=== PATIENT | female | born 1950 | race American Indian/Alaskan Native ===

== ENCOUNTER 2016-09-07 10:28 | Inpatient (IN) | payer OTHER ==
[2016-09-07 11:30] LABS: Anion Gap 20 mmol/L; BUN/Creatinine Ratio 18.75; Blood Urea Nitrogen 15 mg/dL (7-17); Calcium 8.6 mg/dL (8.4-10.2); Carbon Dioxide 23 mmol/L (22-30); Chloride 103.7 mmol/L (98-107); Glucose 142 mg/dL (65-100); Potassium 3.6 mmol/L (3.6-5.0); Sodium 143 mmol/L (137-145)
[2016-09-07 11:38] LABS: Basophils % (Auto) 0.8 % (0.0-1.8); Eosinophils % (Auto) 1.1 % (0.0-4.3); Hematocrit 21.7 % (30.3-42.9); Mean Corpuscular HGB Conc 32 % (30-34); Mean Corpuscular Hemoglobin 31 pg (28-32); Mean Corpuscular Volume 95 fl (79-97); Platelet Count 344 K/mm3 (140-440); Red Cell Distribution Width 15.8 % (13.2-15.2); White Blood Count 6.7 K/mm3 (4.5-11.0)
--- NOTE | 2016-09-07 15:13 | Emergency Department Report ---
ED GI Bleed [facility] - General Chief complaint: Arrhythmia/Palpitations Stated complaint: HEART RACING/TACHYCARDIA Time Seen by Provider: 09/07/16 14:53 Source: patient Mode of arrival: Wheelchair Limitations: No Limitations - History of Present Illness Initial comments: 65-year-old female with history of hypertension and hyperlipidemia presenting today because of palpitations and lightheadedness. Patient states this started over the last 1-2 days. She also has noticed bright red blood in her stool over the last 2 days however has had multiple episodes of diarrhea about 6 days ago and is unsure if there was any blood in there and she did not track. She does not take any blood thinners or aspirin. Takes occasional Tylenol but no other pain medication. Had a colonoscopy approximately 5 years ago which she states was normal and is not aware of any diverticulosis. She has no associated abdominal pain or nausea or vomiting. - Related Data Home Medications Medication Instructions Recorded Confirmed Last Taken No Known Home Medications [No 09/07/16 09/07/16 Unknown Reported Home Medications] Allergies Allergy/AdvReac Type Severity Reaction Status Date / Time No Known Allergies Allergy Unverified 09/07/16 10:47 ED Review of Systems ROS: Stated complaint: HEART RACING/TACHYCARDIA Other details as noted in HPI ED Past Medical Hx - Past Medical History Hx Hypertension: Yes Additional medical history: THYROID. HIGH CHOLESTEROL - Surgical History Additional Surgical History: PARTIAL THYROIDECTOMY (BENIGN MASS REMOVED ). RIGHT HIP. PARTIAL HYSTERECTOMY - Social History Smoking Status: Never Smoker Substance Use Type: None - Medications Home Medications: Home Medications Medication Instructions Recorded Confirmed Last Taken Type No Known Home Medications [No 09/07/16 09/07/16 Unknown History Reported Home Medications] ED Physical Exam - General Limitations: No Limitations General appearance: alert - Head Head exam: Present: atraumatic - Eye Eye exam: Present: other (pale conjunctiva) - ENT ENT exam: Present: normal exam - Respiratory Respiratory exam: Present: normal lung sounds bilaterally, respiratory distress - Cardiovascular Cardiovascular Exam: Present: normal heart sounds, other (tachycardic regular rhythm) - GI/Abdominal GI/Abdominal exam: Present: soft. Absent: distended, tenderness - Rectal Rectal exam: Present: other (maroon stool, guiac positive, no masses or tenderness) - Neurological Exam Neurological exam: Present: alert, oriented X3 - Psychiatric Psychiatric exam: Present: normal affect - Skin Skin exam: Present: intact ED Course Vital Signs 09/07/16 09/07/16 10:34 10:40 Temperature 98.7 F 98.7 F Pulse Rate 115 H 115 H Respiratory 18 16 Rate Blood Pressure 119/74 Blood Pressure 119/74 [Right] O2 Sat by Pulse 100 100 Oximetry - Reevaluation(s) Reevaluation #1: 09/07/16 16:54 Explained results to patient, patient has not had any bloody bowel movements while in ER ED Medical Decision Making - Lab Data Result diagrams: 09/07/16 11:01 09/07/16 11:01 - Medical Decision Making IV, labs, IV fluids, monitor, EKG, type and screen and coags, stool guaiac EKG shows sinus tachycardia at [address]-T changes painless GI bleed, presumed lower GI 1 unit PRBC ordered as hgb at 7 with gi bleed and patient is symptomatic Critical care attestation.: If time is entered above; I have spent that time in minutes in the direct care of this critically ill patient, excluding procedure time. ED Disposition Clinical Impression: GI bleed Disposition: OP ADMITTED IP TO THIS HOSP Is pt being admited?: Yes Condition: Serious Referrals: DEBORAH BUNDY MD [Primary Care Provider] - 3-5 Days Time of Disposition: 16:56 (Spoke to Dr. Richter)
[2016-09-07] MEDS ORDERED: NACL 0.9% 1000 ML 1,000 ML IV ONE (15:14)
[2016-09-07 16:30] LABS: Phosphorous 3.3 mg/dL (2.5-4.5)
[2016-09-07 16:33] LABS: Alanine Aminotransferase 14 units/L (7-56); Albumin 3.8 g/dL (3.9-5); Albumin/Globulin Ratio 1.4 %; Alkaline Phosphatase 44 units/L (35-129); Total Protein 6.6 g/dL (6.3-8.2)
[2016-09-07 16:37] LABS: INR 1.06 (0.87-1.13)
[2016-09-07] MEDS ORDERED: NACL 0.9% 500 ML 500 ML IV ONE (16:37)
[2016-09-07 16:49] LABS: Bilirubin,Direct < 0.2 mg/dL (0-0.2)
[2016-09-07] MEDS ORDERED: MILK OF MAGNESIA PO PRN (20:48)
[2016-09-07] MEDS ORDERED: DULCOLAX PR PRN (20:48)
[2016-09-07] MEDS ORDERED: DILAUDID IV PRN (20:48)
[2016-09-07] MEDS ORDERED: TYLENOL PO PRN (20:48)
[2016-09-07] MEDS ORDERED: ZOFRAN IV PRN (20:48)
[2016-09-07] MEDS: PROTONIX 80 MG in NACL 0.9% 100 ML IV SCH (23:06)
[2016-09-08] MEDS: D5NS 1,000 ML IV SCH ×2 (04:37→16:49)
[2016-09-08 06:08] LABS: Basophils % (Auto) 0.5 % (0.0-1.8); Eosinophils % (Auto) 1.5 % (0.0-4.3); Hemoglobin 7.3 gm/dl (10.1-14.3); Mean Corpuscular HGB Conc 33 % (30-34); Mean Corpuscular Hemoglobin 31 pg (28-32); Mean Corpuscular Volume 92 fl (79-97); Platelet Count 324 K/mm3 (140-440); Red Cell Distribution Width 15.2 % (13.2-15.2); White Blood Count 5.6 K/mm3 (4.5-11.0)
[2016-09-08 06:28] LABS: Alanine Aminotransferase 11 units/L (7-56); Albumin 3.4 g/dL (3.9-5); Albumin/Globulin Ratio 1.4 %; Alkaline Phosphatase 40 units/L (35-129); BUN/Creatinine Ratio 16.66; Blood Urea Nitrogen 10 mg/dL (7-17); Calcium 8.4 mg/dL (8.4-10.2); Carbon Dioxide 23 mmol/L (22-30); Glucose 97 mg/dL (65-100); Total Protein 5.9 g/dL (6.3-8.2)
[2016-09-08 06:29] LABS: Anion Gap 16 mmol/L; Chloride 107.7 mmol/L (98-107); Potassium 3.4 mmol/L (3.6-5.0); Sodium 143 mmol/L (137-145)
[2016-09-08] MEDS: PROTONIX 80 MG in NACL 0.9% 100 ML IV SCH ×2 (07:00→17:15)
--- NOTE | 2016-09-08 10:35 | Progress Note ---
Assessment and Plan Assessment and plan: GI bleed. Patient with previous colonoscopy approximately 5 years ago that was reportedly normal. GI consultation. Patient will likely need endoscopy per GI. Continue Protonix drip. Follow H&H closely. Transfuse for hemoglobin less than 7.0. Acute blood loss anemia. Etiology secondary to above. Monitor H&H closely. Hypertension. Resume antihypertensives medications. Hyperlipidemia. Continue current medications. DVT prophylaxis. Mechanical/SCDs only given GI bleed. History Interval history: No new issues overnight. Patient reports no bleeding since arriving to the hospital. No chest pain or shortness of breath. Hospitalist Physical - Constitutional Vitals: Temp Pulse Resp BP Pulse Ox 99.0 F 68 20 106/67 98 09/08/16 08:11 09/08/16 08:11 09/08/16 08:11 09/08/16 08:11 09/08/16 09:17 General appearance: Present: no acute distress, well-nourished - EENT Eyes: Present: PERRL, EOM intact ENT: hearing intact, clear oral mucosa, dentition normal - Neck Neck: Present: supple, normal ROM - Respiratory Respiratory effort: normal Respiratory: bilateral: CTA - Cardiovascular Rhythm: regular Heart Sounds: Present: S1 & S2. Absent: gallop, rub - Extremities Extremities: no ischemia, No edema, Full ROM - Abdominal General gastrointestinal: soft, non-tender, non-distended, normal bowel sounds - Integumentary Integumentary: Present: clear, warm, dry - Neurologic Neurologic: CNII-XII intact, moves all extremities Results - Labs CBC & Chem 7: 09/08/16 05:44 09/08/16 05:44 Labs: Laboratory Last Values WBC 5.6 K/mm3 (4.5-11.0) 09/08/16 05:44 RBC 2.40 M/mm3 (3.65-5.03) L 09/08/16 05:44 Hgb 7.3 gm/dl (10.1-14.3) L 09/08/16 05:44 Hct 22.0 % (30.3-42.9) L 09/08/16 05:44 MCV 92 fl (79-97) D 09/08/16 05:44 MCH 31 pg (28-32) 09/08/16 05:44 MCHC 33 % (30-34) 09/08/16 05:44 RDW 15.2 % (13.2-15.2) 09/08/16 05:44 Plt Count 324 K/mm3 (140-440) 09/08/16 05:44 Lymph % (Auto) 22.9 % (13.4-35.0) 09/08/16 05:44 [place] % (Auto) 8.0 % (0.0-7.3) H 09/08/16 05:44 Eos % (Auto) 1.5 % (0.0-4.3) 09/08/16 05:44 Baso % (Auto) 0.5 % (0.0-1.8) 09/08/16 05:44 Lymph # 1.3 K/mm3 (1.2-5.4) 09/08/16 05:44 [place] # 0.4 K/mm3 (0.0-0.8) 09/08/16 05:44 Eos # 0.1 K/mm3 (0.0-0.4) 09/08/16 05:44 Baso # 0.0 K/mm3 (0.0-0.1) 09/08/16 05:44 Seg Neutrophils % 67.1 % (40.0-70.0) 09/08/16 05:44 Seg Neutrophils # 3.8 K/mm3 (1.8-7.7) 09/08/16 05:44 PT 13.7 Sec. (12.2-14.9) 09/07/16 15:51 INR 1.06 (0.87-1.13) 09/07/16 15:51 Sodium 143 mmol/L (137-145) 09/08/16 05:44 Potassium 3.4 mmol/L (3.6-5.0) L 09/08/16 05:44 Chloride 107.7 mmol/L (98-107) H 09/08/16 05:44 Carbon Dioxide 23 mmol/L (22-30) 09/08/16 05:44 Anion Gap 16 mmol/L 09/08/16 05:44 BUN 10 mg/dL (7-17) 09/08/16 05:44 Creatinine 0.6 mg/dL (0.7-1.2) L 09/08/16 05:44 Estimated GFR > 60 ml/min 09/08/16 05:44 BUN/Creatinine Ratio 16.66 % 09/08/16 05:44 Glucose 97 mg/dL (65-100) 09/08/16 05:44 Hemoglobin A1c 5.4 % (4-6) 09/08/16 05:44 Calcium 8.4 mg/dL (8.4-10.2) 09/08/16 05:44 Phosphorus 3.30 mg/dL (2.5-4.5) 09/07/16 15:51 Magnesium 2.00 mg/dL (1.7-2.3) 09/07/16 15:51 Total Bilirubin 0.30 mg/dL (0.1-1.2) 09/08/16 05:44 Direct Bilirubin < 0.2 mg/dL (0-0.2) 09/07/16 15:51 Indirect Bilirubin 0.0 mg/dL 09/07/16 15:51 AST 16 units/L (5-40) 09/08/16 05:44 ALT 11 units/L (7-56) 09/08/16 05:44 Alkaline Phosphatase 40 units/L (35-129) 09/08/16 05:44 Troponin T < 0.010 ng/mL (0.00-0.029) 09/07/16 11:01 Total Protein 5.9 g/dL (6.3-8.2) L 09/08/16 05:44 Albumin 3.4 g/dL (3.9-5) L 09/08/16 05:44 Albumin/Globulin Ratio 1.4 % 09/08/16 05:44 TSH 2.370 mlU/mL (0.270-4.200) 09/07/16 15:51 Blood Type A NEGATIVE 09/07/16 15:51 Antibody Screen TNR 09/07/16 15:51 MALACHI Antibody Screen Negative 09/07/16 15:51 Crossmatch See Detail 09/07/16 15:51
[2016-09-08 11:13] LABS: Hematocrit 22.6 % (30.3-42.9); Hemoglobin 7.5 gm/dl (10.1-14.3)
--- NOTE | 2016-09-08 12:08 | History and Physical Report ---
CHIEF COMPLAINT: Bright red blood per rectum for 2 days. HISTORY OF PRESENT ILLNESS: A 65-year-old female who comes in for bright red blood per rectum for the last 2 days. This is the first time this similar thing has happened. Never had any upper GI bleed or lower GI bleed. Had a colonoscopy as a screening colonoscopy. Takes occasional Tylenol. No NSAIDs. Had colonoscopy approximately 5 years ago. Not aware of any diverticulosis. The patient also feels lightheaded, weak and palpitations. PAST MEDICAL HISTORY: Significant for hypertension, hypothyroidism, and hyperlipidemia. PAST SURGICAL HISTORY: Partial thyroidectomy, right hip surgery, partial hysterectomy. SOCIAL HISTORY: Does not smoke. No alcohol, no recreational drugs. FAMILY HISTORY: Significant for hypertension. REVIEW OF SYSTEMS: Significant for feeling weak and bright red blood per rectum, anxiety and palpitations. Otherwise, review of systems is essentially negative. A 14-point review of systems was done. PHYSICAL EXAMINATION: GENERAL: Elderly female, cooperative during examination. VITAL SIGNS: Blood pressure is 119/74 orthostatic, temperature 98.7, pulse is 115, respirations are 18, sats are 100%. HEENT: Unremarkable. Pupils equal and reactive. Conjunctival pale. NECK: Supple, no lymphadenopathy, no thyromegaly. LUNGS: Clear to auscultation and percussion. Good air entry. CARDIOVASCULAR: S1, S2 heard. No gallop, no murmur, no rub. Apical impulse in left fifth intercostal space and midclavicular line. ABDOMEN: Soft and benign. No hepatosplenomegaly. No guarding, no rigidity. Hernial orifices are normal. EXTREMITIES: Good pedal pulses. No pedal edema. CENTRAL NERVOUS SYSTEM: Alert and oriented x 4, nonfocal exam. SKIN: Normal. LABORATORY DATA: Significant for hemoglobin of 7 and hematocrit of 21.7, occult blood positive. ASSESSMENT AND PLAN: 1. Lower gastrointestinal bleed, possible diverticulosis. We will transfuse 2 units of blood and monitor H and H. Gastrointestinal consult ordered. IV fluids ordered. 2. Hypertension. Continue clonidine and hydralazine judiciously. We will hold the clonidine and hydralazine for the time being. 3. Hypothyroidism. We will hold the levothyroxine, because the patient is n.p.o. 4. Hyperlipidemia. We will hold the statins for the time being. Resume once the colonoscopies done. 5. DVT prophylaxis, SCDs only. JOB# [id number] DEVAN/DANIEL
[2016-09-08 14:46] LABS: Hemoglobin 7.9 gm/dl (10.1-14.3)
--- NOTE | 2016-09-08 16:34 | Gastroenterology Consultation ---
History of Present Illness - Reason for Consult Consult date: 09/08/16 anemia, hematochezia Requesting physician: WINNIE JAEGER - History of Present Illness Ms Benjamin is a 65 yo aaf who presents to the hospital following syncopal episode in a parking lot. Pt noted to have severe anemia on admission (unknown baseline). She reports going to a democrat on Friday night, and started having diarrhea with nausea the following day. She states her diarrhea has since resolved. She reports one episode of scant hematochezia on Friday but no further or prior signs of overt GI bleeding. She denies abd pain, dysphagia, change in bowel habits, or significant weight loss. States last colonoscopy was over 5 years ago and was due for repeat. She is not aware if she has anemia at baseline (had labs drawn by PCP a few weeks ago but unknown results). Past History Past Medical History: hypertension, hyperlipidemia, hypothyroidism Social history: no significant social history Family history: other (two 2nd degree relatives with colon cancer) Medications and Allergies Allergies Allergy/AdvReac Type Severity Reaction Status Date / Time No Known Allergies Allergy Unverified 09/07/16 10:47 Home Medications Medication Instructions Recorded Confirmed Last Taken Type Levothyroxine [Synthroid] 75 mcg PO DAILY 09/07/16 09/07/16 1 Day Ago History Lovastatin [Altoprev] 20 mg PO QHS 09/07/16 09/07/16 09/07/16 History cloNIDine [Catapres] 0.2 mg PO DAILY 09/07/16 09/07/16 Unknown History hydrALAZINE [Apresoline] 50 mg PO DAILY 09/07/16 09/07/16 09/07/16 History Active Meds: Active Medications Acetaminophen (Tylenol) 650 mg PO Q4H PRN PRN Reason: Pain MILD(1-3)/Fever >100.5/HUSSEIN Bisacodyl (Dulcolax) 10 mg [place] QDAY PRN PRN Reason: Constipation unrelieved by MOM Hydromorphone HCl (Dilaudid) 1 mg IV Q3H PRN PRN Reason: Pain , Severe (7-10) Dextrose/Sodium Chloride (D5ns) 1,000 mls @ 75 mls/hr IV DIRECT MIKE Last Admin: 09/08/16 04:37 Dose: 75 mls/hr Pantoprazole Sodium 80 mg/ (Sodium Chloride) 100 mls @ 10 mls/hr IV Q10H MIKE PRN Reason: 8 MG/HR Last Admin: 09/08/16 07:00 Dose: 8 mg/hr, 10 mls/hr Magnesium Hydroxide (Milk Of Magnesia) 30 ml PO Q4H PRN PRN Reason: Constipation Ondansetron HCl (Zofran) 4 mg IV Q8H PRN PRN Reason: N/V unrelieved by Reglan Review of Systems - Review of Systems All systems: negative Constitutional: fatigue, weakness Gastrointestinal: See HPI Exam - Constitutional Vital Signs: Temp Pulse Resp BP Pulse Ox 99.5 F 88 20 120/64 100 09/08/16 16:22 09/08/16 16:22 09/08/16 16:22 09/08/16 16:22 09/08/16 16:22 General appearance: no acute distress - EENT Eyes: PERRL, EOM intact ENT: hearing intact, dentition normal - Neck Neck: supple, normal ROM - Respiratory Respiratory effort: normal Respiratory: bilateral: CTA - Cardiovascular Rhythm: regular Heart Sounds: Present: S1 & S2 Extremities: No edema - Gastrointestinal General gastrointestinal: Present: soft, non-tender, non-distended, normal bowel sounds - Integumentary Integumentary: Present: clear, dry - Musculoskeletal Musculoskeletal: deferred - Neurologic Neurological: alert and oriented x3 - Psychiatric Psychiatric: appropriate mood/affect - Labs CBC & Chem 7: 09/08/16 14:34 09/08/16 05:44 Lab Results: Laboratory Results - last 24 hr 09/08/16 09/08/16 09/08/16 05:44 05:44 05:44 WBC 5.6 RBC 2.40 L Hgb 7.3 L Hct 22.0 L MCV 92 D MCH 31 MCHC 33 RDW 15.2 Plt Count 324 Lymph % (Auto) 22.9 [place] % (Auto) 8.0 H Eos % (Auto) 1.5 Baso % (Auto) 0.5 Lymph # 1.3 [place] # 0.4 Eos # 0.1 Baso # 0.0 Seg Neutrophils % 67.1 Seg Neutrophils # 3.8 Sodium 143 Potassium 3.4 L Chloride 107.7 H Carbon Dioxide 23 Anion Gap 16 BUN 10 Creatinine 0.6 L Estimated GFR > 60 BUN/Creatinine Ratio 16.66 Glucose 97 Hemoglobin A1c 5.4 Calcium 8.4 Total Bilirubin 0.30 AST 16 ALT 11 Alkaline Phosphatase 40 Total Protein 5.9 L Albumin 3.4 L Albumin/Globulin Ratio 1.4 09/08/16 09/08/16 10:44 14:34 WBC RBC Hgb 7.5 L 7.9 L Hct 22.6 L 24.0 L MCV MCH MCHC RDW Plt Count Lymph % (Auto) [place] % (Auto) Eos % (Auto) Baso % (Auto) Lymph # [place] # Eos # Baso # Seg Neutrophils % Seg Neutrophils # Sodium Potassium Chloride Carbon Dioxide Anion Gap BUN Creatinine Estimated GFR BUN/Creatinine Ratio Glucose Hemoglobin A1c Calcium Total Bilirubin AST ALT Alkaline Phosphatase Total Protein Albumin Albumin/Globulin Ratio Assessment and Plan 1. anemia - pt with normocytic anemia, unknown baseline. Recalls having an episode of hematochezia a few days ago, but otherwise denies signs of overt GI bleeding (and no bm since admission). She had appropriate response to blood transfusion. -will check iron studies, b12, folate -given suspected dehydration on admission and w/o signs of active bleeding, will prep patient tomorrow for colonoscopy (with possible EGD for anemia work-up ) on Friday
[2016-09-08 18:12] LABS: Iron 25 ug/dL (37-170); Total Iron Binding Capacity 297 mcg/dL (250-450)
--- NOTE | 2016-09-08 20:03 | Admit Criteria Form ---
Admission Criteria Documentation: GASTROINTESTINAL BLEEDING Clinical Indications for Inpatient Care (Place 'X' for any and all applicable criteria): Ongoing inpatient care may be indicated for gastrointestinal bleeding with ANY ONE of the following (4)(20)(21)(22)(23)(24): [ ]I. Active bleeding (eg, fresh voluminous blood in emesis or nasogastric aspirate, or per rectum) [ ]II. Hemodynamic instability [ ]III. Anticoagulation therapy or coagulopathy ((eg, advanced liver disease, irreversible anticoagulation) [ ]IV. Ischemic colitis (22) [ ]V. Endoscopy showing arterial bleeding, adherent clot, nonbleeding visible vessel, varices, flat red spots, ulcer size greater than 2 cm, or portal hypertensive gastropathy [ ]. High-risk low platelet count [X ]VII. Anemia requiring inpatient care as indicated by ANY ONE of the following a)[ ] Cognitive impairment b)[ ] Syncope c)[ ] Heart failure d)[ ] Chest pain e)[ ] Dyspnea f)[X ] Other findings suggesting inadequate perfusion (eg, peripheral or myocardial ischemia, end organ dysfunction) [ ]VIII. High-risk low platelet count [ ]IX. Suspected variceal cause of bleeding as indicated by ANY ONE of the following(27)(28): a)[ ] Known varices b)[ ] Hepatomegaly or splenomegaly c)[ ] Ascites d)[ ] Jaundice or scleral icterus e)[ ] History of liver disease (eg, cirrhosis) f)[ ] Physical findings of portal hypertension (eg, caput [place]) g)[ ] Comorbid disorder indicating risk for portal vein thrombosis (eg , abdominal surgery, sepsis, shock, exchange transfusion, prior umbilical vein catheterization) Extended stay may be needed until ALL of the following are present(20)(38)(47): [ ]a) Hemodynamic stability [ ]b) No evidence of active bleeding (eg, stable Hematocrit) [ ]c) Platelet count, prothrombin time, and partial thromboplastin time acceptable for next level of care [ ]d) Surgical or other acute intervention not needed [ ]e) Oral hydration and diet tolerated The original [facility] [employer] content created by Krista Leslie has been revised. The portions of the content which have been revised are identified through the use of italic text or in bold, and Krista Leslie has neither reviewed nor approved the modified material. All other unmodified content is copyright [facility]. Please see references footnoted in the original [facility] edition 2016 Admission Criteria Met: Yes
[2016-09-09] MEDS: PROTONIX 80 MG in NACL 0.9% 100 ML IV SCH ×2 (04:12→14:23)
[2016-09-09 06:44] LABS: Basophils % (Auto) 0.6 % (0.0-1.8); Eosinophils % (Auto) 1.9 % (0.0-4.3); Hematocrit 23.6 % (30.3-42.9); Hemoglobin 7.8 gm/dl (10.1-14.3); Mean Corpuscular HGB Conc 33 % (30-34); Mean Corpuscular Hemoglobin 30 pg (28-32); Mean Corpuscular Volume 91 fl (79-97); Platelet Count 381 K/mm3 (140-440); Red Blood Count 2.59 M/mm3 (3.65-5.03); Red Cell Distribution Width 14.9 % (13.2-15.2); White Blood Count 7.3 K/mm3 (4.5-11.0)
[2016-09-09] MEDS: D5NS 1,000 ML IV SCH ×2 (06:47→20:45)
[2016-09-09 07:00] LABS: Anion Gap 15 mmol/L; BUN/Creatinine Ratio 11.42; Blood Urea Nitrogen 8 mg/dL (7-17); Calcium 8.2 mg/dL (8.4-10.2); Carbon Dioxide 23 mmol/L (22-30); Chloride 107.3 mmol/L (98-107); Glucose 111 mg/dL (65-100); Potassium 3.4 mmol/L (3.6-5.0); Sodium 142 mmol/L (137-145)
--- NOTE | 2016-09-09 09:54 | Gastroenterology Progress Note ---
Assessment and Plan 1. anemia - scant hematochezia episodes, but doubt acute drop anemia based on description of blood seen. Likely with another possible source of occult GI bleeding (will need to r/o malignancy). will plan for egd/colonoscopy tomorrow. clear liquid diet today, colon prep this evening, with procedures tomorrow Subjective Date of service: 09/09/16 Principal diagnosis: anemia, hematochezia Interval history: pt seen and examined. Had one brown bm yesterday with small streaks of blood. Denies abd pain, n/v. Objective - Constitutional Vitals: Temp Pulse Resp BP Pulse Ox 99.8 F H 96 H 20 155/74 100 09/09/16 08:00 09/09/16 08:00 09/09/16 08:00 09/09/16 08:00 09/09/16 08:00 General appearance: no acute distress - Respiratory Respiratory effort: normal Respiratory: bilateral: CTA - Cardiovascular Rhythm: regular Heart Sounds: Present: S1 & S2 - Extremities Extremities: No edema - Gastrointestinal General gastrointestinal: Present: soft, non-tender, non-distended, normal bowel sounds - Neurologic Neurological: alert and oriented x3 - Psychiatric Psychiatric: appropriate mood/affect - Labs CBC & Chem 7: 09/09/16 06:05 09/09/16 06:05 Labs: Laboratory Results - last 24 hr 09/08/16 09/08/16 09/08/16 10:44 14:34 16:30 WBC RBC Hgb 7.5 L 7.9 L Hct 22.6 L 24.0 L MCV MCH MCHC RDW Plt Count Lymph % (Auto) [place] % (Auto) Eos % (Auto) Baso % (Auto) Lymph # [place] # Eos # Baso # Seg Neutrophils % Seg Neutrophils # Sodium Potassium Chloride Carbon Dioxide Anion Gap BUN Creatinine Estimated GFR BUN/Creatinine Ratio Glucose Calcium Magnesium Iron 25 L TIBC 297 Ferritin Vitamin B12 Folate 09/08/16 09/08/16 09/08/16 16:30 16:30 16:30 WBC RBC Hgb Hct MCV MCH MCHC RDW Plt Count Lymph % (Auto) [place] % (Auto) Eos % (Auto) Baso % (Auto) Lymph # [place] # Eos # Baso # Seg Neutrophils % Seg Neutrophils # Sodium Potassium Chloride Carbon Dioxide Anion Gap BUN Creatinine Estimated GFR BUN/Creatinine Ratio Glucose Calcium Magnesium Iron TIBC Ferritin 18.9 Vitamin B12 > 2000 H Folate 12.70 09/09/16 09/09/16 06:05 06:05 WBC 7.3 RBC 2.59 L Hgb 7.8 L Hct 23.6 L MCV 91 MCH 30 MCHC 33 RDW 14.9 Plt Count 381 Lymph % (Auto) 26.0 [place] % (Auto) 8.5 H Eos % (Auto) 1.9 Baso % (Auto) 0.6 Lymph # 1.9 [place] # 0.6 Eos # 0.1 Baso # 0.0 Seg Neutrophils % 63.0 Seg Neutrophils # 4.6 Sodium 142 Potassium 3.4 L Chloride 107.3 H Carbon Dioxide 23 Anion Gap 15 BUN 8 Creatinine 0.7 Estimated GFR > 60 BUN/Creatinine Ratio 11.42 Glucose 111 H Calcium 8.2 L Magnesium 1.80 Iron TIBC Ferritin Vitamin B12 Folate
[2016-09-09] MEDS ORDERED: DULCOLAX PO ONE (10:00)
--- NOTE | 2016-09-09 10:51 | Progress Note ---
Assessment and Plan Assessment and plan: GI bleed. Patient with previous colonoscopy approximately 5 years ago that was reportedly normal. GI to perform EGD/colonoscopy tomorrow. Continue Protonix drip. Follow H&H closely. Transfuse for hemoglobin less than 7.0. Acute blood loss anemia. Etiology secondary to above. Monitor H&H closely. Hypertension. Resume antihypertensives medications. Hyperlipidemia. Continue current medications. DVT prophylaxis. Mechanical/SCDs only given GI bleed. History Interval history: No new issues overnight. Patient reports no bleeding since arriving to the hospital. No chest pain or shortness of breath. Hospitalist Physical - Constitutional Vitals: Temp Pulse Resp BP Pulse Ox 99.8 F H 96 H 20 155/74 100 09/09/16 08:00 09/09/16 08:00 09/09/16 08:00 09/09/16 08:00 09/09/16 08:00 General appearance: Present: no acute distress, well-nourished - EENT Eyes: Present: PERRL, EOM intact ENT: hearing intact, clear oral mucosa, dentition normal - Neck Neck: Present: supple, normal ROM - Respiratory Respiratory effort: normal Respiratory: bilateral: CTA - Cardiovascular Rhythm: regular Heart Sounds: Present: S1 & S2. Absent: gallop, rub - Extremities Extremities: no ischemia, No edema, Full ROM - Abdominal General gastrointestinal: soft, non-tender, non-distended, normal bowel sounds - Integumentary Integumentary: Present: clear, warm, dry - Neurologic Neurologic: CNII-XII intact, moves all extremities Results - Labs CBC & Chem 7: 09/09/16 06:05 09/09/16 06:05 Labs: Laboratory Last Values WBC 7.3 K/mm3 (4.5-11.0) 09/09/16 06:05 RBC 2.59 M/mm3 (3.65-5.03) L 09/09/16 06:05 Hgb 7.8 gm/dl (10.1-14.3) L 09/09/16 06:05 Hct 23.6 % (30.3-42.9) L 09/09/16 06:05 MCV 91 fl (79-97) 09/09/16 06:05 MCH 30 pg (28-32) 09/09/16 06:05 MCHC 33 % (30-34) 09/09/16 06:05 RDW 14.9 % (13.2-15.2) 09/09/16 06:05 Plt Count 381 K/mm3 (140-440) 09/09/16 06:05 Lymph % (Auto) 26.0 % (13.4-35.0) 09/09/16 06:05 [place] % (Auto) 8.5 % (0.0-7.3) H 09/09/16 06:05 Eos % (Auto) 1.9 % (0.0-4.3) 09/09/16 06:05 Baso % (Auto) 0.6 % (0.0-1.8) 09/09/16 06:05 Lymph # 1.9 K/mm3 (1.2-5.4) 09/09/16 06:05 [place] # 0.6 K/mm3 (0.0-0.8) 09/09/16 06:05 Eos # 0.1 K/mm3 (0.0-0.4) 09/09/16 06:05 Baso # 0.0 K/mm3 (0.0-0.1) 09/09/16 06:05 Seg Neutrophils % 63.0 % (40.0-70.0) 09/09/16 06:05 Seg Neutrophils # 4.6 K/mm3 (1.8-7.7) 09/09/16 06:05 PT 13.7 Sec. (12.2-14.9) 09/07/16 15:51 INR 1.06 (0.87-1.13) 09/07/16 15:51 Sodium 142 mmol/L (137-145) 09/09/16 06:05 Potassium 3.4 mmol/L (3.6-5.0) L 09/09/16 06:05 Chloride 107.3 mmol/L (98-107) H 09/09/16 06:05 Carbon Dioxide 23 mmol/L (22-30) 09/09/16 06:05 Anion Gap 15 mmol/L 09/09/16 06:05 BUN 8 mg/dL (7-17) 09/09/16 06:05 Creatinine 0.7 mg/dL (0.7-1.2) 09/09/16 06:05 Estimated GFR > 60 ml/min 09/09/16 06:05 BUN/Creatinine Ratio 11.42 % 09/09/16 06:05 Glucose 111 mg/dL (65-100) H 09/09/16 06:05 Hemoglobin A1c 5.4 % (4-6) 09/08/16 05:44 Calcium 8.2 mg/dL (8.4-10.2) L 09/09/16 06:05 Phosphorus 3.30 mg/dL (2.5-4.5) 09/07/16 15:51 Magnesium 1.80 mg/dL (1.7-2.3) 09/09/16 06:05 Iron 25 ug/dL (37-170) L 09/08/16 16:30 TIBC 297 mcg/dL (250-450) 09/08/16 16:30 Ferritin 18.9 ng/mL (13.0-400.0) 09/08/16 16:30 Total Bilirubin 0.30 mg/dL (0.1-1.2) 09/08/16 05:44 Direct Bilirubin < 0.2 mg/dL (0-0.2) 09/07/16 15:51 Indirect Bilirubin 0.0 mg/dL 09/07/16 15:51 AST 16 units/L (5-40) 09/08/16 05:44 ALT 11 units/L (7-56) 09/08/16 05:44 Alkaline Phosphatase 40 units/L (35-129) 09/08/16 05:44 Troponin T < 0.010 ng/mL (0.00-0.029) 09/07/16 11:01 Total Protein 5.9 g/dL (6.3-8.2) L 09/08/16 05:44 Albumin 3.4 g/dL (3.9-5) L 09/08/16 05:44 Albumin/Globulin Ratio 1.4 % 09/08/16 05:44 Vitamin B12 > 2000 pg/mL (211-911) H 09/08/16 16:30 Folate 12.70 ng/mL (7.3-26.0) 09/08/16 16:30 TSH 2.370 mlU/mL (0.270-4.200) 09/07/16 15:51 Blood Type A NEGATIVE 09/07/16 15:51 Antibody Screen TNR 09/07/16 15:51 MALACHI Antibody Screen Negative 09/07/16 15:51 Crossmatch See Detail 09/07/16 15:51
[2016-09-09] MEDS: CATAPRES PO SCH (13:13)
[2016-09-09] MEDS ORDERED: GOLYTELY PO ONE (16:00)
[2016-09-09] MEDS: ZOCOR PO SCH (21:34)
[2016-09-09] MEDS ORDERED: NON-FORMULARY (Lovastatin [Altoprev] 20 MG) PO SCH (22:00)
[2016-09-10] MEDS: PROTONIX 80 MG in NACL 0.9% 100 ML IV SCH ×2 (01:05→10:19)
[2016-09-10] MEDS: SYNTHROID PO SCH (05:58)
[2016-09-10 08:34] LABS: Basophils % (Auto) 0.5 % (0.0-1.8); Eosinophils % (Auto) 2.4 % (0.0-4.3); Hematocrit 21.8 % (30.3-42.9); Hemoglobin 7.3 gm/dl (10.1-14.3); Mean Corpuscular HGB Conc 34 % (30-34); Mean Corpuscular Hemoglobin 31 pg (28-32); Mean Corpuscular Volume 92 fl (79-97); Platelet Count 350 K/mm3 (140-440); Red Blood Count 2.37 M/mm3 (3.65-5.03); White Blood Count 6.6 K/mm3 (4.5-11.0)
--- NOTE | 2016-09-10 09:58 | Progress Note ---
Assessment and Plan Assessment and plan: GI bleed. Patient with previous colonoscopy approximately 5 years ago that was reportedly normal. GI to perform EGD/colonoscopy today. Continue Protonix drip. Follow H&H closely. Transfuse for hemoglobin less than 7.0. Acute blood loss anemia. Etiology secondary to above. Monitor H&H closely. Hypertension. Continue antihypertensives medications. Hyperlipidemia. Continue current medications. DVT prophylaxis. Mechanical/SCDs only given GI bleed. History Interval history: No new issues overnight. Patient reports no bleeding since arriving to the hospital. No chest pain or shortness of breath. Hospitalist Physical - Constitutional Vitals: Temp Pulse Resp BP Pulse Ox 98.7 F 72 18 127/72 100 09/10/16 07:00 09/10/16 07:00 09/10/16 07:00 09/10/16 07:00 09/10/16 07:00 General appearance: Present: no acute distress, well-nourished - EENT Eyes: Present: PERRL, EOM intact ENT: hearing intact, clear oral mucosa, dentition normal - Neck Neck: Present: supple, normal ROM - Respiratory Respiratory effort: normal Respiratory: bilateral: CTA - Cardiovascular Rhythm: regular Heart Sounds: Present: S1 & S2. Absent: gallop, rub - Extremities Extremities: no ischemia, No edema, Full ROM - Abdominal General gastrointestinal: soft, non-tender, non-distended, normal bowel sounds - Integumentary Integumentary: Present: clear, warm, dry - Neurologic Neurologic: CNII-XII intact, moves all extremities Results - Labs CBC & Chem 7: 09/10/16 07:53 09/09/16 06:05 Labs: Laboratory Last Values WBC 6.6 K/mm3 (4.5-11.0) 09/10/16 07:53 RBC 2.37 M/mm3 (3.65-5.03) L 09/10/16 07:53 Hgb 7.3 gm/dl (10.1-14.3) L 09/10/16 07:53 Hct 21.8 % (30.3-42.9) L 09/10/16 07:53 MCV 92 fl (79-97) 09/10/16 07:53 MCH 31 pg (28-32) 09/10/16 07:53 MCHC 34 % (30-34) 09/10/16 07:53 RDW 15.0 % (13.2-15.2) 09/10/16 07:53 Plt Count 350 K/mm3 (140-440) 09/10/16 07:53 Lymph % (Auto) 21.5 % (13.4-35.0) 09/10/16 07:53 [place] % (Auto) 8.5 % (0.0-7.3) H 09/10/16 07:53 Eos % (Auto) 2.4 % (0.0-4.3) 09/10/16 07:53 Baso % (Auto) 0.5 % (0.0-1.8) 09/10/16 07:53 Lymph # 1.4 K/mm3 (1.2-5.4) 09/10/16 07:53 [place] # 0.6 K/mm3 (0.0-0.8) 09/10/16 07:53 Eos # 0.2 K/mm3 (0.0-0.4) 09/10/16 07:53 Baso # 0.0 K/mm3 (0.0-0.1) 09/10/16 07:53 Seg Neutrophils % 67.1 % (40.0-70.0) 09/10/16 07:53 Seg Neutrophils # 4.4 K/mm3 (1.8-7.7) 09/10/16 07:53 PT 13.7 Sec. (12.2-14.9) 09/07/16 15:51 INR 1.06 (0.87-1.13) 09/07/16 15:51 Sodium 142 mmol/L (137-145) 09/09/16 06:05 Potassium 3.4 mmol/L (3.6-5.0) L 09/09/16 06:05 Chloride 107.3 mmol/L (98-107) H 09/09/16 06:05 Carbon Dioxide 23 mmol/L (22-30) 09/09/16 06:05 Anion Gap 15 mmol/L 09/09/16 06:05 BUN 8 mg/dL (7-17) 09/09/16 06:05 Creatinine 0.7 mg/dL (0.7-1.2) 09/09/16 06:05 Estimated GFR > 60 ml/min 09/09/16 06:05 BUN/Creatinine Ratio 11.42 % 09/09/16 06:05 Glucose 111 mg/dL (65-100) H 09/09/16 06:05 Hemoglobin A1c 5.4 % (4-6) 09/08/16 05:44 Calcium 8.2 mg/dL (8.4-10.2) L 09/09/16 06:05 Phosphorus 3.30 mg/dL (2.5-4.5) 09/07/16 15:51 Magnesium 1.80 mg/dL (1.7-2.3) 09/09/16 06:05 Iron 25 ug/dL (37-170) L 09/08/16 16:30 TIBC 297 mcg/dL (250-450) 09/08/16 16:30 Ferritin 18.9 ng/mL (13.0-400.0) 09/08/16 16:30 Total Bilirubin 0.30 mg/dL (0.1-1.2) 09/08/16 05:44 Direct Bilirubin < 0.2 mg/dL (0-0.2) 09/07/16 15:51 Indirect Bilirubin 0.0 mg/dL 09/07/16 15:51 AST 16 units/L (5-40) 09/08/16 05:44 ALT 11 units/L (7-56) 09/08/16 05:44 Alkaline Phosphatase 40 units/L (35-129) 09/08/16 05:44 Troponin T < 0.010 ng/mL (0.00-0.029) 09/07/16 11:01 Total Protein 5.9 g/dL (6.3-8.2) L 09/08/16 05:44 Albumin 3.4 g/dL (3.9-5) L 09/08/16 05:44 Albumin/Globulin Ratio 1.4 % 09/08/16 05:44 Vitamin B12 > 2000 pg/mL (211-911) H 09/08/16 16:30 Folate 12.70 ng/mL (7.3-26.0) 09/08/16 16:30 TSH 2.370 mlU/mL (0.270-4.200) 09/07/16 15:51 Blood Type A NEGATIVE 09/07/16 15:51 Antibody Screen TNR 05/13/17 15:51 MALACHI Antibody Screen Negative 09/07/16 15:51 Crossmatch See Detail 09/07/16 15:51
[2016-09-10] MEDS: D5NS 1,000 ML IV SCH ×3 (10:19→22:22)
[2016-09-10] MEDS ORDERED: DIPRIVAN 10 MG/ML IV ONE ×3 (10:39)
--- NOTE | 2016-09-10 10:42 | Anesthesia Consultation ---
Anesthesia Consult and Med Hx Date of service: 09/10/16 - Airway Anesthetic Teeth Evaluation: Dentures (upper and lower) ROM Head & Neck: Adequate Mental/Hyoid Distance: Adequate Mallampati Class: Class III (small mouth opening large tongue) Intubation Access Assessment: Possibly Difficult - Pulmonary Exam CTA: Yes - Cardiac Exam Cardiac Exam: RRR - Pre-Operative Health Status ASA Pre-Surgery Classification: ASA3 Proposed Anesthetic Plan: MAC - Cardiovascular System Hx Hypertension: Yes - Endocrine Hx Hypothyroidism: Yes - Additional Comments Anesthesia Medical History Comments: hyperlipidemia and pre diabetic. Monitoring with diet
--- NOTE | 2016-09-10 10:42 | Anesthesia Day of Surgery ---
Anesthesia Day of Surgery - Day of Surgery Patient Examined: Yes Patient H&P Reviewed: Yes Patient is NPO: Yes
[2016-09-10] MEDS ORDERED: WATER FOR IRRIG STERILE ONE (10:48)
[2016-09-10] MEDS ORDERED: WATER FOR IRRIG STERILE IR ONE (10:49)
[2016-09-10] MEDS: CATAPRES PO SCH (11:21)
[2016-09-10] MEDS: APRESOLINE PO SCH (11:21)
--- NOTE | 2016-09-10 11:33 | Post Operative Note ---
Pre-op diagnosis: anemia, hematochezia Post-op diagnosis: other (gastritis, duodenitis, B ring, diverticulosis) Findings: EGD: non-obstructing B ring, biopsied. Erythematous mucosa in gastric fundus, biopsied. Mild erythema mucosa in duodenal bulb. Colonoscopy: mod-severe diverticulosis, fair prep Procedure: EGD with biopsies, colonoscopy Anesthesia: MAC Surgeon: JEREMIAH CORBIN Estimated blood loss: minimal Pathology: list (Jar A - duodenal biopsies, Jar B - gastric bx's, Jar C - schatski ring bx) Specimen disposition: to lab Condition: stable Disposition: floor
--- NOTE | 2016-09-10 11:42 | Event Note ---
Date: 09/10/16 s/p EGD and colonoscopy. EGD with non-obstructing B ring, erythematous mucosa in gastric fundus, mild duodenitis Colonoscopy: mod-severe diverticulosis, no signs of recent or active bleeding. fair prep. Recommendations: -f/u pathology -avoid NSAIDs -PPI daily before breakfast -okay to restart diet -if no signs of further bleeding, patient can be discharged from GI perspective. She should f/u in GI clinic 3-4 weeks after discharge. If anemia has not improved, consider pill cam
--- NOTE | 2016-09-10 12:06 | Post Anesthesia Evaluation ---
- Post Anesthesia Evaluation Patient Participated: Yes Airway Patent: Yes Stable Respiratory Function: Yes Nausea/Vomiting: No Temp > 96.8F: Yes Pain Manageable: Yes Adequeate Hydration: Yes Anesthesia Complications: No Block Receding Appropriately: Not Applicable Patient on Ventilator: No
--- NOTE | 2016-09-10 17:15 | Operative Report ---
PROCEDURE: EGD. PREOPERATIVE DIAGNOSIS: Anemia. POSTOPERATIVE DIAGNOSES: Nonobstructing Schatzki's ring, erythematous mucosa in the gastric fundus (gastritis), mild duodenitis. ANESTHESIA: Monitored anesthesia care. ESTIMATED BLOOD LOSS: Minimal. COMPLICATIONS: No immediate complications. DESCRIPTION OF PROCEDURE: After consent was obtained, the patient was placed in left lateral decubitus position. The standard upper Fujinon scope was advanced with direct vision through the mouth then advanced into the second portion of the duodenum without difficulty. The patient tolerated the procedure well. The views of the mucosa were good. The patient's vital signs were monitored throughout the procedure. FINDINGS: There was a nonobstructing Schatzki's ring in the lower esophagus/GE junction. Biopsies were obtained. Moderate sized hiatal hernia, otherwise esophagus appeared normal. Moderate to severe erythematous mucosa in the gastric fundus. Otherwise, the stomach appeared normal. Random gastric biopsies were obtained. Mild erythematous mucosa in the duodenal bulb. Otherwise, the duodenum appeared normal. Biopsies were obtained. FINDINGS: 1. Nonobstructing Schatzki's ring. Biopsies obtained. 2. Moderate size hiatal hernia. 3. Erythematous mucosa in the gastric fundus, biopsied. 4. Mild erythematous mucosa in the duodenal bulb. RECOMMENDATIONS: 1. Followup pathology. 2. Avoid NSAIDs. 3. PPI before breakfast daily. 4. Proceed with colonoscopy. JOB# [id number] TETE/DANIEL SHAH
--- NOTE | 2016-09-10 17:39 | Operative Report ---
PREOPERATIVE DIAGNOSIS: Anemia, hematochezia. POSTOPERATIVE DIAGNOSIS: Moderate to severe diverticulosis. ANESTHESIA: Monitored anesthesia care. COMPLICATIONS: No immediate complications. ESTIMATED BLOOD LOSS: None. DESCRIPTION OF PROCEDURE: After consent was obtained, the patient was placed in left lateral decubitus position. The patient's vital signs were monitored throughout the procedure. The Fujinon colonoscope was advanced with direct vision through the anus and advanced to the cecum without difficulty. The patient tolerated the procedure well. The quality of prep was poor/fair. The views of the mucosa were fair. FINDINGS: There is moderate to severe diverticulosis throughout the colon, more prominent on the left side of the colon. Otherwise, no significant findings seen during colonoscopy, although small lesions may have been missed due to quality of prep. IMPRESSION: Moderate to severe diverticulosis. Likely source of patient's hematochezia episodes. No signs of recent or active bleeding seen. RECOMMENDATIONS: 1. High fiber diet daily. 2. Consider PillCam as an outpatient if anemia does not improve. 3. Avoid NSAIDs medications. 4. Okay to restart diet. JOB# [id number] TETE/DANIEL SHAH
[2016-09-10] MEDS: ZOCOR PO SCH (22:19)
[2016-09-11] MEDS: PROTONIX 80 MG in NACL 0.9% 100 ML IV SCH ×2 (00:38→06:00)
[2016-09-11] MEDS: SYNTHROID PO SCH (06:00)
--- NOTE | 2016-09-11 08:44 | Discharge Summary ---
Providers - Providers Date of Admission: 09/07/16 20:48 Date of discharge: 09/11/16 Attending physician: WINNIE JAEGER Primary care physician: DEBORAH BUNDY Hospitalization Reason for admission: GI bleed Condition: Serious Hospital course: Ms Benjamin is a 65 yo aaf who presents to the hospital following syncopal episode in a parking lot. Pt noted to have severe anemia on admission (unknown baseline). She reports going to a democr[employer] on Friday night, and started having diarrhea with nausea the following day. She stated her diarrhea has since resolved. She reported one episode of scant hematochezia on Friday but no further or prior signs of overt GI bleeding. She denies abd pain, dysphagia, change in bowel habits, or significant weight loss. States last colonoscopy was over 5 years ago and was due for repeat. She is not aware if she has anemia at baseline (had labs drawn by PCP a few weeks ago but unknown results). Patient received PRBCs for anemia. Patient underwent EGD which revealed nonobstructing B ring that was biopsied. Patient also was noted to have erythematous mucosa in gastric fundus and duodenal bulb that was also biopsied. Colonoscopy revealed moderate to severe diverticulosis. GI felt the patient could be discharged home. Recommendations are for avoiding NSAIDs and PPI daily before breakfast. She should f/u in GI clinic 3-4 weeks after discharge. If anemia has not improved, consider pill cam. Patient will receive 1 unit of PRBCs prior to discharge. Dedicated discharge time 35 minutes. Disposition: DISCHARGED TO HOME OR SELFCARE Time spent for discharge: 35 - Discharge Diagnoses (1) Acute blood loss anemia Status: Acute (2) GI bleed Status: Acute Qualifiers: GI bleed type/associated pathology: G Gastritis type: G (3) Diverticulosis Status: Acute Qualifiers: Diverticulosis site: D Diverticulosis bleeding: D Core Measure Documentation - Palliative Care Palliative Care/ Comfort Measures: Not Applicable - Core Measures Any of the following diagnoses?: none Exam - Constitutional Vitals: Temp Pulse Resp BP Pulse Ox 98.9 F 78 20 123/68 98 09/11/16 07:54 09/11/16 07:54 09/11/16 07:54 09/11/16 07:54 09/11/16 07:54 General appearance: Present: no acute distress, well-nourished - EENT Eyes: Present: PERRL ENT: hearing intact, clear oral mucosa - Neck Neck: Present: supple, normal ROM - Respiratory Respiratory effort: normal Respiratory: bilateral: CTA - Cardiovascular Heart Sounds: Present: S1 & S2. Absent: rub, click - Extremities Extremities: pulses symmetrical, No edema Peripheral Pulses: within normal limits - Abdominal General gastrointestinal: Present: soft, non-tender, non-distended, normal bowel sounds Female genitourinary: Present: normal - Integumentary Integumentary: Present: clear, warm, dry - Musculoskeletal Musculoskeletal: gait normal, strength equal bilaterally - Psychiatric Psychiatric: appropriate mood/affect, intact judgment & insight - Neurologic Neurologic: CNII-XII intact, moves all extremities Plan Activity: no restrictions Weight Bearing Status: Full Weight Bearing Diet: low fat, low cholesterol, low salt Additional Instructions: Avoid NSAIDs Follow up with: DEBORAH BUNDY MD [Primary Care Provider] - 3-5 Days JEREMIAH CORBIN MD [Staff Physician] - 7 Days Prescriptions: cloNIDine [Catapres] 0.2 mg PO DAILY #30 tablet Ferrous Sulfate [Feosol 325 MG tab] 325 mg PO QDAY #30 tablet hydrALAZINE [Apresoline TAB] 50 mg PO DAILY #30 tablet Levothyroxine [Synthroid] 75 mcg PO DAILY #30 tablet Lovastatin [Altoprev] 20 mg PO QHS #30 tab.er.24h Pantoprazole [Protonix] 40 mg PO QDAY #30 tablet
--- NOTE | 2016-09-11 09:32 | Gastroenterology Progress Note ---
<CHRISTIAN MIRANDA - Last Filed: 09/11/16 09:32> Assessment and Plan 1. Anemia s/p EGD and colonoscopy. EGD with non-obstructing B ring, erythematous mucosa in gastric fundus, mild duodenitis Colonoscopy: mod-severe diverticulosis, no signs of recent or active bleeding. fair prep. -f/u pathology -avoid NSAIDs-D/w patient -PPI daily before breakfast -Tolerating diet well. -If no signs of further bleeding, patient can be discharged from GI perspective. She should f/u in GI clinic 3-4 weeks after discharge. This was discussed at bedside with the patient and she was given office information for follow up. Will consider pill cam in clinic. Subjective Date of service: 09/11/16 Principal diagnosis: anemia, hematochezia Interval history: No acute events overnight. Patient reports she is feeling well. Objective - Constitutional Vitals: Temp Pulse Resp BP Pulse Ox 98.9 F 78 20 123/68 98 09/11/16 07:54 09/11/16 07:54 09/11/16 07:54 09/11/16 07:54 09/11/16 07:54 General appearance: no acute distress - EENT Eyes: EOM intact ENT: hearing intact - Neck Neck: supple - Respiratory Respiratory: bilateral: CTA - Cardiovascular Rhythm: regular Heart Sounds: Present: S1 & S2 - Gastrointestinal General gastrointestinal: Present: soft, non-tender, normal bowel sounds - Integumentary Integumentary: Present: warm, dry - Labs CBC & Chem 7: 09/10/16 07:53 09/09/16 06:05 <JEREMIAH CORBIN - Last Filed: 09/11/16 14:50> Assessment and Plan Patient seen and examined. Agree with note by Key Miranda. Denies bleeding since procedures yesterday. Tolerating po well. Recommend starting iron replacement therapy, and f/u in GI clinic in 3-4 weeks. If pt remains anemic, consider pill cam as outpatient. Will sign off, please call with questions. Objective - Constitutional Vitals: Temp Pulse Resp BP Pulse Ox 98.2 F 73 20 103/59 98 09/11/16 14:30 09/11/16 14:30 09/11/16 14:30 09/11/16 14:30 09/11/16 13:15 - Labs CBC & Chem 7: 09/11/16 08:51 09/09/16 06:05 Labs: Laboratory Results - last 24 hr 09/11/16 09/11/16 08:51 09:21 WBC 6.4 RBC 2.38 L Hgb 7.1 L Hct 21.6 L MCV 91 MCH 30 MCHC 33 RDW 14.8 Plt Count 368 Lymph % (Auto) 23.1 [place] % (Auto) 7.0 Eos % (Auto) 1.9 Baso % (Auto) 0.4 Lymph # 1.5 [place] # 0.4 Eos # 0.1 Baso # 0.0 Seg Neutrophils % 67.6 Seg Neutrophils # 4.3 Blood Type A NEGATIVE Antibody Screen TNR MALACHI Antibody Screen Negative Crossmatch See Detail
[2016-09-11] MEDS ORDERED: PROTONIX IV SCH (10:00)
[2016-09-11] MEDS: CATAPRES PO SCH (10:05)
[2016-09-11] MEDS: APRESOLINE PO SCH (10:05)
[2016-09-11 10:31] LABS: Basophils % (Auto) 0.4 % (0.0-1.8); Eosinophils % (Auto) 1.9 % (0.0-4.3); Hematocrit 21.6 % (30.3-42.9); Hemoglobin 7.1 gm/dl (10.1-14.3); Mean Corpuscular HGB Conc 33 % (30-34); Mean Corpuscular Hemoglobin 30 pg (28-32); Mean Corpuscular Volume 91 fl (79-97); Platelet Count 368 K/mm3 (140-440); Red Blood Count 2.38 M/mm3 (3.65-5.03); Red Cell Distribution Width 14.8 % (13.2-15.2); White Blood Count 6.4 K/mm3 (4.5-11.0)
[2016-09-11] MEDS ORDERED: NACL 0.9% 500 ML 500 ML IV ONE (12:00)
[2016-09-11 16:19] VITALS: BP 116/60
[2016-09-12] MEDS ORDERED: PROTONIX PO SCH (10:00)
== END 2016-09-11 20:14 | disposition home or self-care (01) | DRG 378 ==
LOC: ED 10:28 → 3A 20:48
PROVIDERS: ADMIT Internal Medicine; ATTEND Hospitalist
PROC: 30233N1 Transfusion of Nonautologous Red Blood Cells into Peripheral Vein, Percutaneous Approach (ICD-10-PCS; 2016-09-07)
PROC: 0DB38ZX Excision of Lower Esophagus, Via Natural or Artificial Opening Endoscopic, Diagnostic (ICD-10-PCS; principal; 2016-09-10)
PROC: 0DB98ZX Excision of Duodenum, Via Natural or Artificial Opening Endoscopic, Diagnostic (ICD-10-PCS; principal; 2016-09-10)
PROC: 0DB68ZX Excision of Stomach, Via Natural or Artificial Opening Endoscopic, Diagnostic (ICD-10-PCS; principal; 2016-09-10)
PROC: 0DJD8ZZ Inspection of Lower Intestinal Tract, Via Natural or Artificial Opening Endoscopic (ICD-10-PCS; principal; 2016-09-10)
DX: K92.2 Gastrointestinal hemorrhage, unspecified (principal); D62 Acute posthemorrhagic anemia; K57.90 Diverticulosis of intestine, part unspecified, without perforation or abscess without bleeding; I10 Essential (primary) hypertension; E78.5 Hyperlipidemia, unspecified; E03.9 Hypothyroidism, unspecified; K29.70 Gastritis, unspecified, without bleeding; K29.80 Duodenitis without bleeding; K22.2 Esophageal obstruction; K44.9 Diaphragmatic hernia without obstruction or gangrene; Z90.710 Acquired absence of both cervix and uterus; Z82.49 Family history of ischemic heart disease and other diseases of the circulatory system
CPT/HCPCS: 36415; 36430; 80048; 80053; 80074; 82270; 82607; 82728; 82747; 83036; 83550; 83735; 84100; 84443; 84484; 85014; 85018; 85025; 85610; 86850; 86900; 86901; 86920; 88305; 88342; 93005; 93010; C9113; J2704; J7040; J7042; P9016